=== PATIENT | female | born 1985 | race Caucasian/White ===

== ENCOUNTER 2019-03-16 08:51 | Day surgery (SDC) | payer OTHER ==
[2019-03-16] MEDS ORDERED: PERCOCET 5-3251 EACH PO (11:08)
[2019-03-16] MEDS ORDERED: NEURONTIN300 MG PO (11:09)
[2019-03-16] MEDS ORDERED: KETOROLAC TROME10 MG PO (11:10)
== END 2019-03-16 16:45 | disposition home or self-care (01) ==
LOC: CIR.AMB 08:51
DX: K60.1 Chronic anal fissure (principal)